=== PATIENT | female | born 1980 | race Caucasian/White ===

== ENCOUNTER 2018-07-08 16:49 | Emergency (ER) | payer MEDICARE, SELFPAY ==
[2018-07-08 16:50] VITALS: BP 166/119; PULSE 111; RESP 16; TEMP 36.8; O2SAT 100; BMI 32.8
[2018-07-08 18:41] LABS: Absolute Lymphocyte Count 1.98 X10^3/ul (0.83-4.51); Basophil# 0.03 X10^3/uL; Basophil% 0.3 % (0-1); Eosinophil# 0.16 X10^3/uL; Eosinophils% 1.8 % (0-5); Hematocrit 40.3 % (37-47); Hemoglobin 13.8 g/dl (12.0-15.0); Lymphocyte # 1.98 X10^3/ul (4.0); Mean Corp Hgb Conc 34.2 g/gl (32-36); Mean Corpuscular Hgb 30.8 pg (27.0-32.0); Mean Platelet Vol. 9.9 fl (6.2-12.0); Monocyte# 0.75 X10^3/uL; Monocyte% 8.3 % (0-10); Neutrophil # 6.01 X10^3/uL (2.7-7.7); Neutrophil % 66.8 % (47-70); POSITIVE COUNT NO; POSITIVE DIFFERENTIAL NO; POSITIVE MORPHOLOGY NO; Platelet Count 285 K/mm3 (150-450); RBC Distribution Width CV 12.9 % (11.6-14.6); RBC Distribution Width SD 42.4 fl (35.1-43.9); Red Blood Count 4.48 M/mm3 (4.2-5.4)
[2018-07-08 18:49] LABS: Amphetamine Urine VISTA NEGATIVE (<1000 ng/mL); Barbiturate Urine VISTA NEGATIVE (< 200 ng/mL); Benzodiazepine Urine VISTA NEGATIVE (< 200 ng/mL); Cocaine Urine VISTA NEGATIVE (< 300 ng/mL); Ecstacy Urine VISTA NEGATIVE (< 500 ng/mL); Methadone Urine VISTA NEGATIVE (< 300 ng/mL); PCP Urine VISTA NEGATIVE (< 25 ng/mL); THC Urine VISTA NEGATIVE (< 50 ng/mL); Vista UDS pH Range 6
[2018-07-08 18:59] LABS: Anion Gap 7 (5-15); BUN 9 mg/dL (7-18); BUN/Creat Ratio 11.3 RATIO (10-20); Calcium,Total 8.6 mg/dL (8.5-10.1); Chloride 109 mmol/L (98-107); Creatinine, Serum 0.79 mg/dL (0.55-1.02); EST Glomerular Filtration Rate 86 mL/min (>60); Est Glom Filt Rate - Afr Amer 104 mL/min (>60); Glucose 98 mg/dL (74-106); Pregnancy, Serum, hCG Quali. NEGATIVE Negative (0-9 Nonpreg); Sodium Level 139 mmol/L (136-145)
[2018-07-08 19:05] LABS: Alcohol, Blood (Medical)-Serum < 3.0 mg/dL
--- NOTE | 2018-07-08 20:16 | ED.RN ---
CALLED CRISIS TO SEE THIS PT, SKYLA IS KEY WORKER
[2018-07-08] MEDS: Acetaminophen 325 MG Tablet 650 MG PO (22:08)
--- NOTE | 2018-07-08 23:59 | ED.VISSUMM ---
- ER Visit Summary Date of Service: 07/08/18 Chief Complaint: [Depression] History of Present Illness: The patient is a 38 F [presents the emergency department complaint of feeling depressed for the last several months. Patient states that she returned from [place] recently. 5 or 6 days ago. Patient states that her 2 months ago while in [place]. Patient states that she has had issues with opiate addiction but had been clean for some time however after her she started using again 2 months ago. Patient started using heroin and narcotic pain medication. Her last use of heroin was 3 days ago. Patient feels like she is going through some withdrawals including feeling shaky and diarrhea. Patient feels anxious. Patient having thoughts of wanting to harm herself but has no specific plan. Patient wants help and feels that she would benefit from inpatient admission. Patient used to be on antidepressant medication but she is currently not taking any.] Physical Examination: HEENT-PERRLA, EOMI. Cranial nerves II through XII grossly intact. TMs clear. Mucous membranes moist. No adenopathy. Cardiovascular-regular rate and rhythm without murmur or ectopy Lungs-clear to auscultation, chest wall stable without crepitus or subcu emphysema Abdomen-normoactive bowel sounds, soft, nontender, no rebound or rigidity, no peritoneal signs. Neuro ysmf-ujlkkt-uxtq and heel reese testing within normal limits, negative Romberg, negative pronator drift fundi benign. Patient does have a fine tremor at rest. Extremities-intact ?4, normal range of motion, normal pulses, atraumatic [] Test Results: [CBC with differential obtained was normal. Chemistries were normal. Toxicology screen was normal. Alcohol was negative. HCG was negative.] Emergency Department Course and Treatment: [Patient will be evaluated by crisis]. Patient care turned over to evening physician awaiting evaluate by crisis and final disposition Treatment Plan: [Pending evaluation by crisis.] Disposition: [Pending] Impression: [Depression Suicidal ideation Illicit drug use/abuse] This note was generated with Exanetation software. It may contain incorrect words, spelling, and punctuation that were not noted in review of the chart prior to signing ED Disposition - Plan for ED Patient: Chief Complaint: Depression Referrals: Momo Cummings DO [Primary Care Provider] -
[2018-07-09] VITALS (13 sets, daily range): BP systolic 126–162; BP diastolic 83–110; PULSE 72–114; RESP 15–22; TEMP 35.9; O2SAT 96–98
--- NOTE | 2018-07-09 00:02 | ED.DCSUM_ITS ---
- ER Visit Summary Date of Service: 07/08/18 Chief Complaint: [Depression] History of Present Illness: The patient is a 38 F [presents the emergency department complaint of feeling depressed for the last several months. Patient states that she returned from [place] recently. 5 or 6 days ago. Patient states that her 2 months ago while in [place]. Patient states that she has had issues with opiate addiction but had been clean for some time however after her she started using again 2 months ago. Patient started using heroin and narcotic pain medication. Her last use of heroin was 3 days ago. Patient feels like she is going through some withdrawals including feeling shaky and diarrhea. Patient feels anxious. Patient having thoughts of wanting to harm herself but has no specific plan. Patient wants help and feels that she would benefit from inpatient admission. Patient used to be on antidepressant medication but she is currently not taking any.] Physical Examination: HEENT-PERRLA, EOMI. Cranial nerves II through XII grossly intact. TMs clear. Mucous membranes moist. No adenopathy. Cardiovascular-regular rate and rhythm without murmur or ectopy Lungs-clear to auscultation, chest wall stable without crepitus or subcu emphysema Abdomen-normoactive bowel sounds, soft, nontender, no rebound or rigidity, no peritoneal signs. Neuro bfla-qaxico-qfxb and heel reese testing within normal limits, negative Romberg, negative pronator drift fundi benign. Patient does have a fine tremor at rest. Extremities-intact ?4, normal range of motion, normal pulses, atraumatic [] Test Results: [CBC with differential obtained was normal. Chemistries were normal. Toxicology screen was normal. Alcohol was negative. HCG was negative.] Emergency Department Course and Treatment: [Patient will be evaluated by crisis]. Patient care turned over to evening physician awaiting evaluate by crisis and final disposition Treatment Plan: [Pending evaluation by crisis.] Disposition: [Pending] Impression: [Depression Suicidal ideation Illicit drug use/abuse] This note was generated with [employer] App[employer] software. It may contain incorrect words, spelling, and punctuation that were not noted in review of the chart prior to signing ED Disposition - Plan for ED Patient: Chief Complaint: Depression Referrals: Momo Cummings DO [Primary Care Provider] -
[2018-07-09] MEDS: LORazepam 2 MG/ML Syringe 1 MG IM (00:42)
[2018-07-09] MEDS: LORazepam 1 MG Tablet PO (03:19)
[2018-07-09] MEDS: OLANZapine 5 MG/TAB TAB.RAPDIS 10 MG PO (04:55)
[2018-07-09] MEDS: Ziprasidone IM 20 MG/ML VIAL 10 MG IM ×3 (05:47→16:33)
--- NOTE | 2018-07-09 05:51 | ED.RN ---
patient very agitated at this time yelling and screaming she would like to leave. Patient up and walked out of her room in attempt to leave the unit. Patient is currently pink slipped. [place] [employer] contacted and made contact with patient. Patient keeps yelling and screaming that she wants to leave and she wishes she was and some one shoot me in the head i dont want to live anymore at this time patient given medication to help calm down at this time. Patient willing took medication. waiting to hear about placement at [facility]
[2018-07-09] MEDS: LORazepam 1 MG Tablet 2 MG PO ×2 (07:23→13:44)
--- NOTE | 2018-07-09 07:23 | ED.RN ---
[facility] CALLED AND REQUESTED RECENT SET OF VITALS SIGNS FOR POSSIBLE ADMISSION. VITALS SIGNS FAXED TO THEM AT THIS TIME
--- NOTE | 2018-07-09 08:10 | ED.RN ---
PT RESTLESS, DEESCALATES EASILY WITH EMOTIONAL SUPPORT. DISCUSSED WITH DR TYSON POSSIBILITY OF GIVING PT MEDICATION FOR WITHDRAWAL SYMPTOMS. MEDICATION ORDERED, AWAITING MEDS FROM PHARMACY.
[2018-07-09] MEDS: Methocarbamol 500 MG Tablet 1000 MG PO (08:14)
[2018-07-09] MEDS: QUEtiapine 25 MG Tablet PO (08:14)
--- NOTE | 2018-07-09 09:38 | ED.RN ---
[facility] CALLED AND DENIED PATIENT BECAUSE OF INSURANCE. CALLED [facility] TO LET THEM KNOW.
--- NOTE | 2018-07-09 11:29 | ED.RN ---
DR MEEKS CALLED FROM [facility], STS THAT [facility] IS WILLING TO ACCEPT PT AND WOULD LIKE TO HAVE PT INFORMATION FAXED.
--- NOTE | 2018-07-09 11:42 | EKG12_ITS ---
Test Reason : [facility] Blood Pressure : / mmHG Vent. Rate : 089 BPM Atrial Rate : 089 BPM P-R Int : 128 ms QRS Dur : 084 ms QT Int : 368 ms P-R-T Axes : 066 054 068 degrees QTc Int : 447 ms Sinus rhythm with marked sinus arrhythmia Otherwise normal ECG Confirmed by MANDI MICHELLE, SANDER ([id number]), editor map MARVIN WASHINGTON ([id number]) on 07/12/2018 10:27:39 AM Referred By: MARBELLA/CONSTANTINO Confirmed By:SANDER RAYMOND MD
[2018-07-09 12:06] LABS: Mucous, Urine 0 SEEN /hpf (<or=2+); Red Blood Cells-Urine 0 SEEN /hpf (0-5); White Blood Cells 0 SEEN /hpf (0-5)
[2018-07-09 12:12] LABS: Color, Urine Yellow (Yellow); Glucose, Dipstick Normal (Normal); Ketone-Dipstick Negative (Negative); Leukocyte Esterase-Dipstick Negative /ul (Negative); Nitrite-Dipstick Negative (Negative); Occult Blood-Urine Negative /ul (Negative); Protein-Dipstick 15 mg/dl (Negative); Specific Gravity, Urine 1.015 (1.002-1.030); Urine Bilirubin Dipstick Negative (Negative); Urine Clarity Sl. Cloudy (Clear); Urine Urobilinogen Normal (Normal)
[2018-07-09 12:17] LABS: AST(SGOT) 27 U/L (15-37); Alanine Aminotransfer ALT/SGPT 22 U/L (13-56); Albumin, Serum 3.5 g/dL (3.2-5.0); Alkaline Phosphatase 82 U/L (45-117); Bilirubin, Direct < 0.05 mg/dL (0.00-0.30); Protein, Total 7.5 g/dL (6.4-8.2)
[2018-07-09 12:25] LABS: Squamous Epithelial Cells - UA 0-5 SEEN /hpf (5-10)
[2018-07-09 12:26] LABS: Bacteria 1+ /hpf (None Seen)
--- NOTE | 2018-07-09 13:54 | ED.RN ---
CALLED [facility] TO CHECK ON STATUS. THE DOCTOR HAS ALL OF THE PAPERWORK AND IS REVIEWING IT.
--- NOTE | 2018-07-09 15:14 | ED.RN ---
PATIENT WAS ACCEPTED AT [facility] [place], JUST WAITING FOR HER BED TO BE READY.
--- NOTE | 2018-07-09 16:28 | ED.RN ---
SPOKE WITH NADYA AT [facility]. SHE STATED THAT SHE DOESN'T KNOW HOW LONG IT WILL BE FOR A BED. THERE IS ONE ADMISSION AHEAD OF THIS PATIENT AND THEN SHE WILL GET A BED.
--- NOTE | 2018-07-09 18:21 | ED.RN ---
CALLED [facility] TO CHECK ON PATIENT'S BED. SPOKE WITH KULDIP NUNES AND HE STATED THAT THEY ARE STILL WAITING FOR ANOTHER ADMISSION AND HE WOULD CALL US AND LET US KNOW WHEN SHE WILL BE ABLE TO GO.
[2018-07-09] MEDS: Clonidine HCl 0.1 MG, Clonidine HCl 0.2 MG 0.3 MG PO (20:34)
[2018-07-09] MEDS: proMETHazine 25 MG Tablet PO (20:34)
== END 2018-07-09 23:23 ==
PROVIDERS: Emergency Medicine; Emergency Provider Emergency Medicine; Family Provider Family Medicine; PCP Family Medicine
DX: F32.9 Major depressive disorder, single episode, unspecified (principal); R45.851 Suicidal ideations; F11.23 Opioid dependence with withdrawal; F41.9 Anxiety disorder, unspecified; Z72.0 Tobacco use
CPT/HCPCS: 80048; 80076; 80307; 80320; 81001; 84703; 85025; 93005; 96372; 99284; G0480; J3486

== ENCOUNTER 2018-07-31 12:22 | Emergency (ER) | payer MEDICARE, MEDICAID, SELFPAY ==
[2018-07-31 12:23] VITALS: BP 123/79; PULSE 108; RESP 16; TEMP 36.9; O2SAT 96; BMI 36.3
--- NOTE | 2018-07-31 15:25 | ED.DCSUM_ITS ---
- ER Visit Summary Date of Service: 07/31/18 Chief Complaint: R ear pain History of Present Illness: The patient is a 38 F with right ear pain that started yesterday now she has some slight pain in her left ear. She has congestion which she has had for a few weeks. She has no fever or chills. No shortness of breath. She has congestion and sinus pain for some time. Physical Examination: Not appear in acute distress. Moist mucous membranes, no obvious facial deformity. She has bilateral otitis media. She has erythema and bulging membranes on the right and erythema on the left. There is postnasal drip. There is swollen beefy red nasal turbinates. No C-spine tenderness supple neck. Regular rate and rhythm without any obvious murmurs Clear lungs bilaterally speaking in full sentences without any obvious respiratory distress Abdomen soft and nontender no guarding or rebound Moves all extremities without any difficulty or pain. Skin does not show any obvious rashes or lesions, no trauma. Alert oriented ?3 with no gross focal deficit Emergency Department Course and Treatment: Patient will be treated for otitis media with antibiotics. . Discharge stable condition Impression: Bilateral otitis media This note was generated with [employer] dictation software. It may contain incorrect words, spelling, and punctuation that were not noted in review of the chart prior to signing ED Disposition - Plan for ED Patient: Disposition: Home or Assisted Living Chief Complaint: Ear Problem Instructions: ED Otitis Media Acute Adult Prescriptions: Azithromycin 250 mg PO DAILY #6 tab Referrals: Momo Cummings DO [Primary Care Provider] - 3-5 Days
--- NOTE | 2018-07-31 15:27 | ED.DCSUM_ITS ---
- ER Visit Summary Date of Service: 07/31/18 Chief Complaint: [] History of Present Illness: The patient is a 38 F [] Physical Examination: [] Test Results: [] Emergency Department Course and Treatment: [] Treatment Plan: [] Disposition: [] Impression: [] This note was generated with Flashtalking dictation software. It may contain incorrect words, spelling, and punctuation that were not noted in review of the chart prior to signing ED Disposition - Plan for ED Patient: Chief Complaint: Ear Problem Instructions: ED Otitis Media Acute Adult Prescriptions: Azithromycin 250 mg PO DAILY #6 tab Referrals: Momo Cummings DO [Primary Care Provider] - 3-5 Days
--- NOTE | 2018-07-31 15:37 | ED.VISSUMM ---
- ER Visit Summary Date of Service: 07/31/18 Chief Complaint: [] History of Present Illness: The patient is a 38 F [] Physical Examination: [] Test Results: [] Emergency Department Course and Treatment: [] Treatment Plan: [] Disposition: [] Impression: [] This note was generated with InRadio dictation software. It may contain incorrect words, spelling, and punctuation that were not noted in review of the chart prior to signing ED Disposition - Plan for ED Patient: Disposition: Home or Assisted Living Chief Complaint: Ear Problem Instructions: ED Otitis Media Acute Adult Prescriptions: Azithromycin 250 mg PO DAILY #6 tab Referrals: Momo Cummings DO [Primary Care Provider] - 3-5 Days
[2018-07-31 15:51] VITALS: PULSE 97; RESP 16; O2SAT 99
== END 2018-07-31 15:52 | disposition home or self-care (01) ==
PROVIDERS: Emergency Provider Emergency Medicine; Family Provider Family Medicine; PCP Family Medicine
DX: H66.93 Otitis media, unspecified, bilateral (principal); I10 Essential (primary) hypertension; Z72.0 Tobacco use
CPT/HCPCS: 99282

== ENCOUNTER 2018-08-02 19:58 | Emergency (ER) | payer MEDICARE, MEDICAID, SELFPAY ==
[2018-08-02 19:59] VITALS: BP 145/91; PULSE 87; RESP 16; TEMP 36; O2SAT 96; BMI 33.9
--- NOTE | 2018-08-02 20:03 | ED.RN ---
PT WAS TOLD SHE CAN NOT SIT IN THE WAITING ROOM AND SWEAR AND CARRY ON BECAUSE SHE IS WAITING. TOLD THERE ARE CHILDREN AND OTHER SICK PEOPLE WAITING ALSO AND IT IS UNACCEPTABLE BEHAVIOR AND SECURITY WILL BE CALLED IF IT CONTINUES.
--- NOTE | 2018-08-02 20:40 | RAD_ITS ---
STUDY: X-RAY CHEST REASON FOR EXAM: Female, 38 years old. Cough. TECHNIQUE: Frontal and lateral views of the chest. COMPARISON: None. FINDINGS: The lungs are clear and expanded. There is no demonstrated pleural abnormality. Normal size heart. Normal mediastinum and ronna. Normal visualized pulmonary arteries. Normal visualized aortic arch and descending thoracic aorta. Normal visualized thoracic spine. Normal visualized ribs, clavicles, and shoulders. There is no demonstrated abnormality of the visualized soft tissue structures of the upper abdomen. RAD/Chest PA and Lateral IMPRESSION: Normal x-ray examination of the chest. Electronically Signed: Rolo Pugh MD at 21:14 EST , Service support ,
[2018-08-02 21:50] LABS: Absolute Lymphocyte Count 3.14 X10^3/ul (0.83-4.51); Absolute Neutrophil Count 10.4 X10^3/uL (2.0-7.7); Basophil# 0.07 X10^3/uL; Basophil% 0.5 % (0-1); Eosinophil# 0.31 X10^3/uL; Hematocrit 35.4 % (37-47); Hemoglobin 11.3 g/dl (12.0-15.0); Lymphocyte # 3.14 X10^3/ul (4.0); Lymphocyte % 20.2 % (19-41); Mean Corp Hgb Conc 31.9 g/gl (32-36); Mean Corpuscular Hgb 29.8 pg (27.0-32.0); Mean Corpuscular Volume 93.4 fL (81-99); Mean Platelet Vol. 9.1 fl (6.2-12.0); Monocyte% 8.4 % (0-10); Neutrophil # 10.39 X10^3/uL (2.7-7.7); Neutrophil % 66.8 % (47-70); Platelet Count 269 K/mm3 (150-450); RBC Distribution Width SD 47.6 fl (35.1-43.9); Red Blood Count 3.79 M/mm3 (4.2-5.4); White Blood Count 15.5 K/mm3 (4.4-11.0)
[2018-08-02 21:52] LABS: Differential Indicated SCAN CRITERIA MET; POSITIVE COUNT YES; POSITIVE DIFFERENTIAL NO; POSITIVE MORPHOLOGY YES
[2018-08-02 22:03] LABS: AST(SGOT) 19 U/L (15-37); Alanine Aminotransfer ALT/SGPT 22 U/L (13-56); Albumin, Serum 2.6 g/dL (3.2-5.0); Alkaline Phosphatase 81 U/L (45-117); Anion Gap 6 (5-15); BUN 12 mg/dL (7-18); BUN/Creat Ratio 17.5 RATIO (10-20); Bilirubin, Direct < 0.05 mg/dL (0.00-0.30); Calcium,Total 8.2 mg/dL (8.5-10.1); Chloride 104 mmol/L (98-107); Creatinine, Serum 0.68 mg/dL (0.55-1.02); EST Glomerular Filtration Rate 102 mL/min (>60); Est Glom Filt Rate - Afr Amer 123 mL/min (>60); Estimated Creatinine Clearance 103.98 ml/min; Globulin 4.8 g/dL (2.2-4.2); Glucose 110 mg/dL (74-106); Lipase 87 U/L (73-393); Potassium 4.1 mmol/L (3.5-5.1); Protein, Total 7.4 g/dL (6.4-8.2); Sodium Level 138 mmol/L (136-145)
[2018-08-03] VITALS: BP 121/80; PULSE 87; RESP 20; O2SAT 97
--- NOTE | 2018-08-03 00:08 | ED.DCSUM_ITS ---
- ER Visit Summary Date of Service: 08/03/18 Chief Complaint: Cough History of Present Illness: The patient is a 38 F presenting with cough. She states this started on Monday. She has had a nonproductive cough. She had subjective fever. She was seen in the ED earlier this week and started on Zithromax for ear infection. She denies sick contacts. She did not receive a flu shot this year. Complains of fever, myalgias, cough. Denies other complaints. Physical Examination: Vitals are stable. Patient is afebrile. Alert no acute distress. HEENT exam is unremarkable. Neck is supple. No meningismus Lungs are clear and equal bilaterally. Heart is regular rate and rhythm. Abdomen is soft mild right upper quadrant tenderness with no guarding or rebound Extremities are unremarkable. Skin is warm and dry. No focal neurologic deficit. Remainder of exam is unremarkable. Emergency Department Course and Treatment: CBC shows a white count of 15.5, hemoglobin 11.3. Glucose is 110. Lipase is normal. Influenza negative. Chest x-ray shows no acute process. Patient is given a prescription for Tessalon Perles. Advised to follow-up with her primary care physician. Advised return to ED if worsening complaints. Disposition: Discharge home Impression: Bronchitis This note was generated with [employer] dictation software. It may contain incorrect words, spelling, and punctuation that were not noted in review of the chart prior to signing ED Disposition - Plan for ED Patient: Chief Complaint: Cough Referrals: Momo Cummings DO [Primary Care Provider] -
--- NOTE | 2018-08-03 00:15 | ED.DEP ---
ED Disposition - Plan for ED Patient: Chief Complaint: Cough Instructions: ED Upper Resp Infec No Abx Tx Prescriptions: Benzonatate [Tessalon Perle] 200 mg PO TID PRN PRN #20 capsule PRN Reason: Cough Naproxen [Naprosyn] 500 mg PO BID PRN #20 tablet Referrals: Momo Cummings DO [Primary Care Provider] -
[2018-08-03] MEDS: Benzonatate 100 MG Capsule PO (00:36)
[2018-08-03] MEDS: Naproxen 500 MG Tablet PO (00:36)
[2018-08-03 12:55] LABS: Pathologist Review Reviewed
== END 2018-08-03 00:38 | disposition home or self-care (01) ==
PROVIDERS: Emergency Provider Emergency Medicine; Family Provider Family Medicine; PCP Family Medicine
DX: J40 Bronchitis, not specified as acute or chronic (principal); Z72.0 Tobacco use
CPT/HCPCS: 71046; 80048; 80076; 83690; 85025; 87804; 99284

== ENCOUNTER 2018-08-04 19:12 | Emergency (ER) | payer MEDICARE, MEDICAID, SELFPAY ==
[2018-08-04 19:16] VITALS: BP 145/83; PULSE 87; RESP 18; TEMP 36.1; O2SAT 96; BMI 37.0
[2018-08-04 20:18] LABS: Hemoglobin 12.6 g/dl (12.0-15.0); Mean Corp Hgb Conc 32.3 g/gl (32-36); Mean Corpuscular Hgb 30.4 pg (27.0-32.0); Mean Corpuscular Volume 94.2 fL (81-99); Mean Platelet Vol. 9.3 fl (6.2-12.0); Platelet Count 330 K/mm3 (150-450); RBC Distribution Width CV 14.1 % (11.6-14.6); RBC Distribution Width SD 46.3 fl (35.1-43.9); Red Blood Count 4.14 M/mm3 (4.2-5.4); White Blood Count 15.1 K/mm3 (4.4-11.0)
[2018-08-04 20:19] LABS: Differential Indicated MANUAL DIFF; POSITIVE COUNT YES; POSITIVE DIFFERENTIAL YES; POSITIVE MORPHOLOGY YES
[2018-08-04 20:26] LABS: Alcohol, Blood (Medical)-Serum < 3.0 mg/dL
[2018-08-04 20:29] LABS: Anion Gap 8 (5-15); BUN 17 mg/dL (7-18); BUN/Creat Ratio 22.1 RATIO (10-20); Calcium,Total 8.4 mg/dL (8.5-10.1); Chloride 105 mmol/L (98-107); Creatinine, Serum 0.77 mg/dL (0.55-1.02); EST Glomerular Filtration Rate 89 mL/min (>60); Est Glom Filt Rate - Afr Amer 107 mL/min (>60); Estimated Creatinine Clearance 91.83 ml/min; Glucose 88 mg/dL (74-106); Potassium 4.2 mmol/L (3.5-5.1); Sodium Level 140 mmol/L (136-145)
--- NOTE | 2018-08-04 20:30 | ED.VISSUMM ---
- ER Visit Summary Date of Service: 08/04/18 Chief Complaint: Suicidal ideation History of Present Illness: The patient is a 38 F who presents for 3 days of suicidal ideation. Patient has history of bipolar disorder, anxiety and PTSD. She is a patient at the counseling center. For the last 3 days she has felt suicidal, and her plan was to overdose on her roommates bottle of gabapentin. Patient denies any alcohol use but has been smoking marijuana. She denies any fever, chest pain, shortness of breath, abdominal pain, nausea or vomiting or any other somatic symptoms. She denies any ingestions, including prescription, [id number] or illicit substances. She denies any other acts of self-harm. Physical Examination: Vital signs: afebrile, hemodynamically stable, no hypoxia on room air General: well nourished, well developed, in no distress Skin: warm, dry, no rash, no pallor, no injuries noted HEENT: normocephalic and atraumatic; PERRL, EOMI, moist mucous membranes Cardiovascular: regular rate and rhythm without murmurs, no peripheral edema, 2+ pulses all distal extremities Respiratory: No increased work of breathing, lungs are clear to auscultation bilaterally, no rales, rhonchi or wheezing Abdominal: Abdomen is soft, nontender with normoactive bowel sounds, no guarding or rebound, no masses MSK: Moves all extremities, no deformities, normal strength Neuro: Awake and alert, oriented ?4. No facial droop, sensation and motor function intact and symmetric Test Results: Abnormal Lab Results 08/04/18 08/04/18 08/04/18 19:54 20:05 20:05 WBC 15.1 H RBC 4.14 L Hgb 12.6 Hct 39.0 MCV 94.2 MCH 30.4 MCHC 32.3 RDW 14.1 RDW Differential 46.3 H Plt Count 330 MPV 9.3 Neut % (Auto) Not Reportable Absolute Neuts (auto) 8.5 H Absolute Lymphs (auto) 4.68 H Total Counted 100 Neutrophils % (Manual) 55 Band Neutrophils % 1 Lymphocytes % (Manual) 31 Monocytes % (Manual) 5 Eosinophils % (Manual) 3 Basophils % (Manual) 1 Myelocytes % 3 H Promyelocytes % 1 H Diff Path Review May foll Sodium 140 Potassium 4.2 Chloride 105 Carbon Dioxide 27.0 Anion Gap 8 BUN 17 Creatinine 0.77 Estim Creat Clear Calc 91.83 Est GFR (MDRD) Af Amer 107 Est GFR (MDRD) Non-Af 89 BUN/Creatinine Ratio 22.1 H Glucose 88 Calcium 8.4 L Serum , Qual Urine Opiates Screen POSITIVE H Urine Methadone Screen NEGATIVE Ur Barbiturates Screen NEGATIVE Ur Phencyclidine Scrn NEGATIVE Ur Amphetamines Screen NEGATIVE U Methamphetamin-MDMA NEGATIVE U Benzodiazepines Scrn NEGATIVE Urine Cocaine Screen NEGATIVE U Cannabinoids Screen POSITIVE H Ur Drug Screen Comment Ethyl Alcohol 08/04/18 08/04/18 20:05 20:05 WBC RBC Hgb Hct MCV MCH MCHC RDW RDW Differential Plt Count MPV Neut % (Auto) Absolute Neuts (auto) Absolute Lymphs (auto) Total Counted Neutrophils % (Manual) Band Neutrophils % Lymphocytes % (Manual) Monocytes % (Manual) Eosinophils % (Manual) Basophils % (Manual) Myelocytes % Promyelocytes % Diff Path Review Sodium Potassium Chloride Carbon Dioxide Anion Gap BUN Creatinine Estim Creat Clear Calc Est GFR (MDRD) Af Amer Est GFR (MDRD) Non-Af BUN/Creatinine Ratio Glucose Calcium Serum , Qual NEGATIVE Urine Opiates Screen Urine Methadone Screen Ur Barbiturates Screen Ur Phencyclidine Scrn Ur Amphetamines Screen U Methamphetamin-MDMA U Benzodiazepines Scrn Urine Cocaine Screen U Cannabinoids Screen Ur Drug Screen Comment Ethyl Alcohol < 3.0 Medications Given Discontinued Medications Chlorpromazine HCl (Thorazine) 100 mg PO X1 ONE Stop: 08/04/18 21:44 Divalproex Sodium (Depakote) 500 mg PO NOW STA Stop: 08/04/18 21:46 Emergency Department Course and Treatment: Patient had not taken her evening medications and was given them in the emergency department. Medical screening was performed, with negative , negative alcohol, tox screen positive for marijuana and opiates. No lab derangements. Patient was medically cleared for further evaluation by counseling center installation service representative. Because patient has an active plan and has attempted suicide in the past, she would benefit from placement for inpatient evaluation and management. Evaluated by crisis counselor, who agreed that patient is actively suicidal and would benefit from inpatient management. Final disposition is pending placement. Treatment Plan: [] Disposition: [] Impression: Suicidal ideation, history of bipolar disorder This note was generated with Origami Energyation software. It may contain incorrect words, spelling, and punctuation that were not noted in review of the chart prior to signing ED Disposition - Plan for ED Patient: Chief Complaint: Suicidal Referrals: Momo Cummings DO [Primary Care Provider] -
[2018-08-04 20:33] VITALS: BP 110/89; PULSE 72; O2SAT 95
[2018-08-04 20:42] LABS: Pregnancy, Serum, hCG Quali. NEGATIVE Negative (0-9 Nonpreg)
[2018-08-04 20:47] LABS: Basophil 1 % (0-1); Eosinophil 3 % (0-5); Lymphocyte 31 % (19-41); Monocyte 5 % (0-10); Myelocyte 3 (0-0); Neutrophil-Band 1 % (0-5); Neutrophil-Segmented 55 % (47-70); Promyelocyte 1 (0-0); Total Cells Counted 100 (MANUAL DIFF)
[2018-08-04 21:04] LABS: Amphetamine Urine VISTA NEGATIVE (<1000 ng/mL); Barbiturate Urine VISTA NEGATIVE (< 200 ng/mL); Benzodiazepine Urine VISTA NEGATIVE (< 200 ng/mL); Cocaine Urine VISTA NEGATIVE (< 300 ng/mL); Ecstacy Urine VISTA NEGATIVE (< 500 ng/mL); Methadone Urine VISTA NEGATIVE (< 300 ng/mL); PCP Urine VISTA NEGATIVE (< 25 ng/mL); THC Urine VISTA POSITIVE (< 50 ng/mL); Vista UDS pH Range 7
[2018-08-04 21:05] LABS: Absolute Lymphocyte Count 4.68 X10^3/ul (0.83-4.51); Absolute Neutrophil Count 8.5 X10^3/uL (2.0-7.7)
--- NOTE | 2018-08-04 21:10 | ED.RN ---
BILL FROM CRISIS IS COMING WHEN SHE IS AVAILABLE TO SEE PT.
[2018-08-04 21:22] VITALS: RESP 18
[2018-08-04] MEDS: Benzonatate 100 MG Capsule 200 MG PO (22:20)
[2018-08-04] MEDS: Divalproex Sodium 250 MG Tablet 500 MG PO (22:20)
[2018-08-04 22:22] VITALS: PULSE 76; RESP 18
--- NOTE | 2018-08-04 22:22 | NURSING ---
PATIENT DOES NOT WANT HER THORAZINE YET.
--- NOTE | 2018-08-04 22:52 | ED.RN ---
BILL FROM CRISIS IS HERE TO SEE PT.
[2018-08-05] VITALS (7 sets, daily range): BP systolic 100–120; BP diastolic 60–85; PULSE 66–75; RESP 14–18; TEMP 36.2; O2SAT 97–99
[2018-08-05 01:00] LABS: Acetaminophen (Tylenol) Level < 2.0 ug/mL (10.0-30.0); Salicylate < 1.7 mg/dL (2.8-20.0)
[2018-08-05] MEDS: ChlorproMAZINE 25 MG Tablet 100 MG PO (02:09)
--- NOTE | 2018-08-05 02:14 | NURSING ---
PATIENT WANTED THORAZINE SO IT WAS GIVEN TO HER. AN UPDATE WAS GIVEN ON WAITING FOR PLACEMENT AT A MENTAL HEALTH FACILITY.
--- NOTE | 2018-08-05 03:45 | ED.RN ---
SPOKE WITH TANISHA AT [facility]. HE WANTED TO KNOW WHY THE PATIENT WAS ON AN ANTIBIOTIC. I LOOKED AT PAST VISITS AND SHE WAS IN TWO TIMES LAST WEEK. ONCE FOR UPPER RESPIRATORY INFECTIONS WHERE SHE WAS GIVEN TESSALON PEARLS AND NAPROXEN AND ONCE FOR BILATERAL OTITIS MEDIA WHERE SHE WAS GIVEN A ZPAK. I TOLD TANISHA THAT THE 11TH TODAY SHOULD BE HER LAST DOSE. HE ALSO WANTED A U/A DONE, EKG AND WANTED A COPY OF HER CHEST XRAY FROM 08/04/18. U/A AND CHEST XRAY ORDERED AND INSTRUCTIONS TO FAX WERE GIVEN TO THE FINANCIAL OFFICER.
--- NOTE | 2018-08-05 03:54 | EKG12_ITS ---
Test Reason : [facility] Blood Pressure : / mmHG Vent. Rate : 085 BPM Atrial Rate : 085 BPM P-R Int : 122 ms QRS Dur : 078 ms QT Int : 376 ms P-R-T Axes : 067 072 074 degrees QTc Int : 447 ms Poor data quality, interpretation may be adversely affected Normal sinus rhythm Normal ECG Confirmed by ZHEN MICHELLE, JUANITO ([id number]), pictures editor MARVIN WASHINGTON ([id number]) on 08/07/2018 3:58:08 PM Referred By: NICCI Confirmed By:JUANITO FONTAINE MD
--- NOTE | 2018-08-05 04:00 | MDS.RN ---
PATIENT AWAKENED FOR EKG. SHE WAS VERY SWEATY AND C/O BEING HOT. STATES THAT ALWAYS HAPPENS AFTER I TAKE THE LITHIUM I LET DR. CHAPPELL KNOW THIS AND HE SAID THAT HE IS NOT AWARE OF THIS SIDE EFFECT. THIS NURSE LOOKED UP THE SIDE EFFECTS AND I DIDN'T SEE DIAPHORESIS A SIDE EFFECT. PATIENT SNORES VERY LOUDLY AND THE ROOM IS WARM SO I BELIEVE THIS GOOD BE WHY SHE IS HOT.
[2018-08-05 04:04] LABS: Bacteria 0 SEEN /hpf (None Seen); Color, Urine Yellow (Yellow); Glucose, Dipstick Normal (Normal); Ketone-Dipstick Negative (Negative); Leukocyte Esterase-Dipstick Negative /ul (Negative); Mucous, Urine 0 SEEN /hpf (<or=2+); Nitrite-Dipstick Negative (Negative); Occult Blood-Urine 10 /ul (Negative); Protein-Dipstick 15 mg/dl (Negative); Specific Gravity, Urine 1.015 (1.002-1.030); Urine Bilirubin Dipstick Negative (Negative); Urine Clarity Clear (Clear); Urine Urobilinogen Normal (Normal)
[2018-08-05 04:15] LABS: Red Blood Cells-Urine 0-5 SEEN /hpf (0-5); Squamous Epithelial Cells - UA 0-5 SEEN /hpf (5-10); White Blood Cells 0 SEEN /hpf (0-5)
--- NOTE | 2018-08-05 07:56 | ED.RN ---
PER BILL WITH CRISIS; MADE A REFERRAL TO [facility], WAITING TO HEAR OF THEY WILL ACCEPT PT
--- NOTE | 2018-08-05 09:45 | ED.RN ---
TRANSPORT PRESENT AND TRANSFER PT TO [facility]. PT RELIEVED AND AGREEABLE TO TRANSPORT AT THIS TIME.
--- NOTE | 2018-08-05 10:13 | ED.RN ---
CLOGS FOUND UNDER BED WHEN CLEANING ROOM. GIVEN TO SECURITY FOR PT TO GET WHEN ABLE.
[2018-08-06 14:06] LABS: Pathologist Review Reviewed
== END 2018-08-05 09:55 ==
LOC: ED 20:20
PROVIDERS: Emergency Medicine; Emergency Provider Emergency Medicine; Family Provider Family Medicine; PCP Family Medicine
DX: R45.851 Suicidal ideations (principal); F31.9 Bipolar disorder, unspecified; F41.9 Anxiety disorder, unspecified; F12.90 Cannabis use, unspecified, uncomplicated; Z72.0 Tobacco use
CPT/HCPCS: 80048; 80307; 80320; 80329; 81001; 84703; 85025; 93005; 99285; G0480

== ENCOUNTER 2018-08-20 22:44 | Emergency (ER) | payer MEDICARE, OTHER, SELFPAY ==
[2018-08-20 22:45] VITALS: BP 155/111; PULSE 74; RESP 18; TEMP 36.7; O2SAT 97; BMI 35.5
[2018-08-20] MEDS: 0.9% Normal Saline 1,000 ML 150 ML IV (23:26)
[2018-08-20] MEDS: MethylPREDNISolone 125 MG/2 ML Vial IV (23:27)
[2018-08-20 23:52] VITALS: BP 119/75; PULSE 67; RESP 14; O2SAT 97
--- NOTE | 2018-08-21 00:18 | ED.VISSUMM ---
- ER Visit Summary Date of Service: 08/21/18 Chief Complaint: Allergic reaction History of Present Illness: The patient is a 38 F who started Latuda 1 week ago from the psychiatrist at [facility]. Patient states that after taking yesterday's dose she felt some tongue thickness that lasted for about 30 minutes and then resolved. She took another dose tonight at 9 PM and about 30 minutes later noted similar symptoms that have not yet resolved. She took her medication 2 hours ago. Patient also admits to using kratom at the same time as Latuda tonight. She did not take kratom yesterday. She states that she feels very funny and is scared. She has some mild throat tightness and tongue fullness. She does not have significant shortness of breath. Physical Examination: Vital signs on arrival include a blood pressure of 155/111, otherwise unremarkable. Patient is lying in bed no acute distress. She speaks in a strong voice and is tolerating secretions well. Head neck examination reveals no visible tongue edema. Posterior pharynx exam is normal. Heart is regular rate and rhythm. Lung sounds are clear. Abdomen is soft and nontender. Skin examination reveals no rash or lesions Test Results: [] Emergency Department Course and Treatment: Patient was given IV Solu-Medrol and Pepcid. She has an allergy to Benadryl. On repeat evaluation approximately 1 hour later patient is sleeping comfortably. She easily awakens. She states that she feels back to her baseline. We will observe her for an additional 1 hour. Patient did have similar symptoms yesterday when taking Latuda without Kratom. Patient does have a documented allergy to Geodon which is in the same class of medications as Latuda. I advised her that she needs to stop taking the Latuda. I also encouraged her to stop using kratom as it has multiple bad side effects. Patient is scheduled to follow-up with the counseling center on the third. I will speak with a counselor yoshi and have them follow closely with her. Treatment Plan: [] Disposition: Discharge Impression: 1. Allergic drug reaction 2. Medication side effects This note was generated with TapTrakation software. It may contain incorrect words, spelling, and punctuation that were not noted in review of the chart prior to signing ED Disposition - Plan for ED Patient: Chief Complaint: Allergic Reaction Referrals: Momo Cummings DO [Primary Care Provider] -
--- NOTE | 2018-08-21 00:22 | ED.DCSUM_ITS ---
- ER Visit Summary Date of Service: 08/21/18 Chief Complaint: Allergic reaction History of Present Illness: The patient is a 38 F who started Latuda 1 week ago from the psychiatrist at [facility]. Patient states that after taking yesterday's dose she felt some tongue thickness that lasted for about 30 minutes and then resolved. She took another dose tonight at 9 PM and about 30 minutes later noted similar symptoms that have not yet resolved. She took her medication 2 hours ago. Patient also admits to using kratom at the same time as Latuda tonight. She did not take kratom yesterday. She states that she feels very funny and is scared. She has some mild throat tightness and tongue fulln ess. She does not have significant shortness of breath. Physical Examination: Vital signs on arrival include a blood pressure of 155/111, otherwise unremarkable. Patient is lying in bed no acute distress. She speaks in a strong voice and is tolerating secretions well. Head neck examination reveals no visible tongue edema. Posterior pharynx exam is normal. Heart is regular rate and rhythm. Lung sounds are clear. Abdomen is soft and nontender. Skin examination reveals no rash or lesions Test Results: [] Emergency Department Course and Treatment: Patient was given IV Solu-Medrol and Pepcid. She has an allergy to Benadryl. On repeat evaluation approximately 1 hour later patient is sleeping comfortably. She easily awakens. She states that she feels back to her baseline. We will observe her for an additional 1 hour. Patient did have similar symptoms yesterday when taking Latuda without Kratom. Patient does have a documented allergy to Geodon which is in the same class of medications as Latuda. I advised her that she needs to stop taking the Latuda. I also encouraged her to stop using kratom as it has multiple bad side effects. Patient is scheduled to follow-up with the counseling center on the third. I will speak with a counselor yoshi and have them follow closely with her. Treatment Plan: [] Disposition: Discharge Impression: 1. Allergic drug reaction 2. Medication side effects This note was generated with [employer] software. It may contain incorrect words, spelling, and punctuation that were not noted in review of the chart prior to signing ED Disposition - Plan for ED Patient: Chief Complaint: Allergic Reaction Referrals: Momo Cummings DO [Primary Care Provider] -
--- NOTE | 2018-08-21 00:22 | ED.DEP ---
ED Disposition - Plan for ED Patient: Disposition: Home or Assisted Living Chief Complaint: Allergic Reaction Instructions: ED Drug React Allergic Referrals: Counseling,Center [GROUP OF PHYSICIANS] - Keep Ujan appointment
[2018-08-21 00:33] VITALS: BP 119/82; PULSE 68; RESP 17; O2SAT 94
[2018-08-21 01:18] VITALS: BP 118/72; PULSE 78; RESP 18; O2SAT 92
== END 2018-08-21 01:18 | disposition home or self-care (01) ==
PROVIDERS: Emergency Provider Emergency Medicine; Family Provider Family Medicine; PCP Family Medicine
DX: K13.29 Other disturbances of oral epithelium, including tongue (principal); R09.89 Other specified symptoms and signs involving the circulatory and respiratory systems; T43.595A Adverse effect of other antipsychotics and neuroleptics, initial encounter; I10 Essential (primary) hypertension; F32.9 Major depressive disorder, single episode, unspecified; F41.9 Anxiety disorder, unspecified; Z79.899 Other long term (current) drug therapy; Z72.0 Tobacco use
CPT/HCPCS: 96361; 96374; 96375; 99285; J7030; A4216; J3490

== ENCOUNTER 2020-07-18 21:19 | Emergency (ER) | payer MEDICARE, SELFPAY ==
[2020-07-18 21:20] VITALS: BP 159/96; PULSE 74; RESP 16; TEMP 36.2; O2SAT 99; BMI 41.5
--- NOTE | 2020-07-18 22:13 | CT_ITS ---
STUDY: CT ABDOMEN AND PELVIS WITHOUT CONTRAST REASON FOR EXAM: Female, 40 years old. LT GROIN PAIN RADIATION DOSAGE (If Supplied By Facility): CTDIvol = ( 23.40 ) mGy, DLP = ( 1210.37 ) mGycm TECHNIQUE: Transaxial images were obtained from the dome of the diaphragm to the symphysis pubis without oral contrast, and without intravenous contrast. Sagittal and coronal images were reconstructed. Individualized dose optimization techniques were used for this CT. COMPARISON: 09/08/2016. FINDINGS: The visualized lung bases are unremarkable. The visualized portions of the heart are within normal limits. There is decreased attenuation of the liver consistent with steatosis. There is marked hepatomegaly. The gallbladder is contracted. Normal spleen. Normal pancreas. Normal bilateral adrenal glands. There are no acute abnormalities of the kidneys. Right kidney has a 3 mm nonobstructing upper pole stone left kidney has a 3 mm nonobstructing lower pole stone. No hydronephrosis on either side. No renal masses. Evaluation of the GI tract is limited by absence of oral contrast. Cannot exclude stomach wall thickening. No dilated loops of bowel or evidence for obstruction. Cannot exclude segmental thickening of the angela of the small or large bowel. Cannot exclude enteritis or colitis. Moderate diffuse fecal retention. Appendix within normal limits. Normal abdominal aorta. Normal inferior vena cava. Normal retroperitoneum. Normal urinary bladder. Normal visualized uterus. Along the posterior aspect of the uterus, there is a low-density oval shaped mass roughly 7.2 cm greatest dimension. Probable PREVENTION COORDINATOR cyst, but pelvic ultrasound is recommended. Normal abdominal wall. Normal osseous structures. CT/Abdomen/Pelvis without Cont IMPRESSION: 7.2 cm probable cystic mass behind the uterus. Pelvic ultrasound is recommended. Hepatomegaly. Nonobstructing bilateral renal stones. Electronically Signed: Rolo Pugh MD at 23:16 EDT , Service support ,
--- NOTE | 2020-07-18 22:16 | ED.VISSUMM ---
- ER Visit Summary Date of Service: 07/18/20 Chief Complaint: Left lower quadrant abdominal pain History of Present Illness: The patient is a 40 F who presents with left lower quadrant and left groin pain that began earlier today. Patient describes her pain as throbbing. Patient states her pain feels similar to prior ovarian torsion. Patient states the pain is localized to the left lower quadrant and left groin area. Patient states the pain is worse with sitting. Patient states the pain is better when she lays on her right side. Patient admits to nausea but denies any vomiting. Patient denies any fevers or chills. Patient denies any chest pain or shortness of breath. Patient denies any urinary complaints. Physical Examination: Vital signs are stable. Patient is afebrile. Patient is in no acute distress. Oral mucosa is pink and moist. Neck is supple. Trachea is midline. There is no JVD. Heart was regular rate and rhythm. Lungs are clear and equal bilaterally. Abdomen is soft. Bowel sounds are normal. There is left lower quadrant and left inguinal tenderness. There are no masses palpated. Cranial nerves II through XII are intact. There are no focal motor or sensory deficits noted. Test Results: CBC shows a mild leukocytosis of 14.5. Comprehensive metabolic profile was within normal limits. Urinalysis does not show any evidence of urinary tract infection. Serum hCG was negative. CT scan of the abdomen and pelvis was obtained. There is a 7.2 cm cyst behind the uterus. They recommended further evaluation with ultrasound. Transvaginal ultrasound was obtained. There is a 3.6 cm right ovarian cyst. There is no evidence of ovarian torsion. There is no other acute abnormality noted. These were interpreted by the radiologist and reviewed by myself. Emergency Department Course and Treatment: Patient was given IV fluids. Patient was given a dose of morphine here. Patient was instructed to drink plenty of fluids. Patient was instructed to take Tylenol or ibuprofen as needed for pain. Patient was instructed to follow-up with her primary care physician in 5 to 7 days. Patient understood and was agreeable with the plan. All questions were answered. Disposition: Discharge home Impression: 1. Ovarian cyst This note was generated with [employer] software. It may contain incorrect words, spelling, and punctuation that were not noted in review of the chart prior to signing ED Disposition - Plan for ED Patient: Disposition: Home or Assisted Living Diagnosis: Ovarian cyst Instructions: ED Cyst Ovarian Referrals: [facility],Out of [NON-STAFF] - 5-7 Days
[2020-07-18] MEDS: Morphine 2 MG/ML Syringe IV (22:20)
[2020-07-18 22:29] LABS: Absolute Lymphocyte Count 2.61 X10^3/uL (0.83-4.51); Absolute Neutrophil Count 10.7 X10^3/uL (2.0-7.7); Basophil# 0.03 X10^3/uL; Basophil% 0.2 % (0-1); Eosinophil# 0.39 X10^3/uL; Eosinophils% 2.7 % (0-5); Hematocrit 40.6 % (37-47); Hemoglobin 12.9 g/dL (12.0-15.0); Lymphocyte # 2.61 X10^3/ul (4.0); Mean Corp Hgb Conc 31.8 g/dL (32-36); Mean Corpuscular Hgb 29.5 pg (27.0-32.0); Mean Corpuscular Volume 92.9 fL (81-99); Mean Platelet Vol. 10.4 fl (6.2-12.0); Monocyte# 0.76 X10^3/uL; Monocyte% 5.2 % (0-10); NRBC Flagged by Analyzer 0 % (0-5); Neutrophil # 10.65 X10^3/uL (2.7-7.7); Neutrophil % 73.3 % (47-70); Platelet Count 294 K/mm3 (150-450); RBC Distribution Width CV 13.1 % (11.6-14.6); RBC Distribution Width SD 44.5 fl (35.1-43.9); Red Blood Count 4.37 M/mm3 (4.2-5.4); White Blood Count 14.5 K/mm3 (4.4-11.0)
[2020-07-18 22:29] LABS: Bacteria 0 SEEN /hpf (None Seen); Mucous, Urine 0 SEEN /hpf (<or=2+); Red Blood Cells-Urine 0 SEEN /hpf (0-5); Squamous Epithelial Cells - UA 0 SEEN /hpf (5-10); White Blood Cells 0 SEEN /hpf (0-5)
[2020-07-18 22:39] LABS: Color, Urine Yellow (Yellow); Glucose, Dipstick Normal (Normal); Ketone-Dipstick Negative (Negative); Leukocyte Esterase-Dipstick 25 /ul (Negative); Nitrite-Dipstick Negative (Negative); Occult Blood-Urine 25 /ul (Negative); Protein-Dipstick Negative (Negative); Specific Gravity, Urine 1.005 (1.002-1.030); Urine Bilirubin Dipstick Negative (Negative); Urine Clarity Clear (Clear); Urine Urobilinogen Normal (Normal)
[2020-07-18 22:46] LABS: Internal QC Validated? YES +Cl - CLEAR BKGD; Pregnancy, Serum, hCG Quali. NEGATIVE Negative
[2020-07-18 22:52] LABS: ALB/GLOB Ratio 0.8 RATIO (0.9-2.4); AST(SGOT) 27 U/L (15-37); Alanine Aminotransfer ALT/SGPT 28 U/L (13-56); Albumin, Serum 3.3 g/dL (3.2-5.0); Alkaline Phosphatase 77 U/L (45-117); Anion Gap 6 (5-15); BUN 11 mg/dL (7-18); Calcium,Total 8.5 mg/dL (8.5-10.1); Chloride 107 mmol/L (98-107); Creatinine, Serum 0.92 mg/dL (0.55-1.02); EST Glomerular Filtration Rate 72 mL/min (>60); Est Glom Filt Rate - Afr Amer 87 mL/min (>60); Estimated Creatinine Clearance 72.41 ml/min; Globulin 4.3 g/dL (2.2-4.2); Glucose 105 mg/dL (74-106); Potassium 3.6 mmol/L (3.5-5.1); Protein, Total 7.6 g/dL (6.4-8.2); Sodium Level 140 mmol/L (136-145)
--- NOTE | 2020-07-18 23:22 | US_ITS ---
STUDY: ULTRASOUND OF THE FEMALE PELVIS - COMPLETE REASON FOR EXAM: Female, 40 years old. [facility] ct TECHNIQUE: Transabdominal and Transvaginal TECHNICAL QUALITY: Adequate. COMPARISON: None. FINDINGS: The uterus is anteverted and is in a midline position. The uterus measures 10.1 x 7.2 x 4.5 cm. Normal uterine cervix. The endometrium measures 3.6 mm in thickness, and is hyperechoic. There is no demonstrated endometrial mass. There is no demonstrated myometrial mass. I.U.D. - The patient does not have an I.U.D. The right ovary is visualized. The right ovary measures 4.7 x 3.5 x 4.8 cm. There is a cyst in the right ovary measures 2.6 cm. There is no visualized right adnexal mass or complex lesion. There is normal arterial and normal venous vascularity. The left ovary is visualized. The left ovary measures 5.8 x 5.5 x 5.5 cm. There is no left ovarian cyst or ovarian mass. There is no visualized left adnexal mass or complex lesion. There is normal arterial and normal venous vascularity. There is minimal fluid in the cul-de-sac. US/Transvaginal Non- IMPRESSION: Right ovarian cyst measures 2.6 cm. There is minimal fluid in the cul-de-sac. Electronically Signed: Dean Sanches, at 2:00 EDT Tel , Service support ,
[2020-07-18 23:32] VITALS: RESP 18
[2020-07-19 01:15] VITALS: RESP 16
[2020-07-19 02:03] VITALS: BP 136/87; PULSE 77; RESP 16; O2SAT 97
[2020-07-19 03:16] VITALS: BP 134/60; PULSE 87; RESP 16; O2SAT 96
== END 2020-07-19 03:16 | disposition home or self-care (01) ==
PROVIDERS: Emergency Provider Emergency Medicine
DX: N83.201 Unspecified ovarian cyst, right side (principal); N20.0 Calculus of kidney; I10 Essential (primary) hypertension; F32.9 Major depressive disorder, single episode, unspecified; F11.20 Opioid dependence, uncomplicated; E66.9 Obesity, unspecified; Z68.41 Body mass index [BMI] 40.0-44.9, adult; Z72.0 Tobacco use
CPT/HCPCS: 74176; 76830; 80053; 81001; 84703; 85025; 96374; 99284; A4216